=== PATIENT | male | born 1985 | race Caucasian/White ===

== ENCOUNTER 2016-09-07 18:50 | Emergency (ER) | payer OTHER ==
[2016-09-07 18:57] VITALS: BP 128/88; PULSE 70; TEMP 98.2; BMI 30.8
--- NOTE | 2016-09-07 19:16 | PDOC ---
History of Present Illness - General History Source: Patient Exam Limitations: No Limitations - History of Present Illness Initial Comments: 09/07/16 19:29 The patient is a 31 year old male, with no significant past medical history, who presents today complaining of a laceration on the left 5th toe s/p stubbing his toe on the wooden foot of his living room sofa approximately 30 minutes ago. The patient reports no pain with walking; however, he was unsure if he needed stitches. The injured toe is not swollen or painful. He is unsure when his last tetanus was. Denies fever, chills, nausea, vomiting. Denies head trauma or any other injuries. Denies LOC. Allergies: none reported <Opal Martin - Last Filed: 09/07/16 19:29> <Isa Burrows - Last Filed: 09/08/16 04:20> - General Chief Complaint: Injury Stated Complaint: LEFT 5TH TOE INJURY Time Seen by Provider: 09/07/16 19:13 Past History <Opal Martin - Last Filed: 09/07/16 19:29> - Psycho/Social/Smoking Cessation Hx Anxiety: No Suicidal Ideation: No Smoking History: Never smoked Hx Alcohol Use: Yes (OCCASIONAL) Drug/Substance Use Hx: No Substance Use Type: None <Isa Burrows - Last Filed: 09/08/16 04:20> - Past Medical History Allergies/Adverse Reactions: Allergies Allergy/AdvReac Type Severity Reaction Status Date / Time No Known Allergies Allergy Verified 09/07/16 18:51 Home Medications: Ambulatory Orders NK [No Known Home Medication] 09/07/16 Review of Systems - Review of Systems Able to Perform ROS?: Yes Comments:: 09/07/16 19:29 CONSTITUTIONAL: Absent: fever, no chills, no fatigue EYES: Absent: visual changes ENT: Absent: ear pain, no sore throat CARDIOVASCULAR: Absent: chest pain, no palpitations RESPIRATORY: Absent: cough, no SOB GI: Absent: abdominal pain, no nausea, no vomiting, no constipation, no diarrhea GENITOURINARY: Absent: dysuria, no frequency, no hematuria MUSCULOSKELETAL: Absent: back pain, no arthralgia, no myalgia SKIN: Present: laceration on the left 5th toe. Absent: rash NEURO: Absent: headache <Opal Martin - Last Filed: 09/07/16 19:29> *Physical Exam - Vital Signs Last Vital Signs Temp Pulse Resp BP Pulse Ox 98.2 F 70 15 128/88 98 09/07/16 18:51 09/07/16 18:51 09/07/16 18:51 09/07/16 18:51 09/07/16 18:51 - Physical Exam Comments: 09/07/16 19:29 GENERAL: The patient is awake, alert, and fully oriented, in no acute distress. HEAD: Normal with no signs of trauma. EYES: Pupils equal, round and reactive to light, extraocular movements intact, sclera anicteric, conjunctiva clear with no pallor. ENT: Ears normal, nares patent, oropharynx clear without exudates. Moist mucous membranes. NECK: Normal range of motion, supple without lymphadenopathy, JVD, or masses. EXTREMITIES: +1 cm linear, non bleeding laceration of the distal phalanx of the left 5th toe. No deformity, ecchymosis, or tenderness. Minimal edema around the site of the wound. Normal range of motion. No clubbing or cyanosis. No cords, erythema, or tenderness. NEUROLOGICAL: Cranial nerves II through XII grossly intact. Normal speech, normal gait. SKIN:Warm, Dry, normal turgor, no rashes or lesions noted. <Opal Martin - Last Filed: 09/07/16 19:29> - Vital Signs Last Vital Signs Temp Pulse Resp BP Pulse Ox 98.2 F 70 15 128/88 98 09/07/16 18:51 09/07/16 18:51 09/07/16 18:51 09/07/16 18:51 09/07/16 18:51 <Isa Burrows - Last Filed: 09/08/16 04:20> Procedures - Laceration/Wound Repair Left Lower Toe 5th digit Wound Length: to 2.5 cm Wound Explored: clean Wound's Depth, Shape: superficial Irrigated w/ Saline: Yes Betadine Prep: No Wound Repaired With: Dermabond <Isa Burrows - Last Filed: 09/08/16 04:20> Progress Note - Progress Note Progress Note: Documentation has been prepared under my direction and personally reviewed by me in its entirety. I attest that this documented accurately reflects all work, treatment, procedures and medical decision making performed by me. <Isa Burrows - Last Filed: 09/08/16 04:20> Medical Decision Making - Medical Decision Making As noted above, this otherwise healthy 31-year-old man presents with left fifth toe injury after he stubbed it against a sofa in his home. He has a laceration at the tip of the toe with mild tenderness/no deformity or ecchymosis . Patient unsure when his most recent tetanus immunization was administered. X-ray of the toe was performed to evaluate for fracture. No evidence of fracture or dislocation of the toe on x-ray as interpreted by me. Boostrix immunization administered. As noted above, superficial laceration of the tip of the toe was repaired using Dermabond skin adhesive. There was no evidence of nail bed disruption/injury and matrix likewise was uninjured. Laceration was dressed using sterile gauze with support taping to adjacent toe. Patient will keep wound dry for the next 24 hours and then cover as needed to prevent re-injuring the area. <Isa Burrows - Last Filed: 09/08/16 04:20> *DC/Admit/Observation/Transfer - Attestations Scribe Attestion: 09/07/16 19:30 Documentation prepared by ZEB Hayward, acting as medical records assistant for Isa Burrows MD. <Opal Martin - Last Filed: 09/07/16 19:29> <Isa Burrows - Last Filed: 09/08/16 04:20> Diagnosis at time of Disposition: Laceration of fifth toe of left foot Qualifiers: Encounter type: initial encounter Qualified Code(s): S91.115A - Laceration without foreign body of left lesser toe(s) without damage to nail, initial encounter - Discharge Dispostion Disposition: HOME Condition at time of disposition: Stable - Patient Instructions Printed Discharge Instructions: DI for Laceration Repair With Dermabond Additional Instructions: Cover laceration with gauze for the next 24 hours, then as needed Avoid excessive walking over the next few days Return or see your doctor if area becomes more red/painful/swollen
[2016-09-07] MEDS ORDERED: DIPHTH,PERTUSS(ACELL),TET 0.5 ML DISP.SYRIN IM ONE (19:33)
== END 2016-09-07 20:41 | disposition home or self-care (01) ==
LOC: FER 18:50
PROC: 0HQNXZZ Repair Left Foot Skin, External Approach (ICD-10-PCS; principal; 2016-09-07)
PROC: 3E0234Z Introduction of Serum, Toxoid and Vaccine into Muscle, Percutaneous Approach (ICD-10-PCS; 2016-09-07)
DX: S91.115A Laceration without foreign body of left lesser toe(s) without damage to nail, initial encounter (principal); W22.03XA Walked into furniture, initial encounter; Y93.89 Activity, other specified; Y92.009 Unspecified place in unspecified non-institutional (private) residence as the place of occurrence of the external cause
CPT/HCPCS: 73660-TC; 90715; 99281-25